=== PATIENT | female | born 1965 | race Hispanic/Latino ===

== ENCOUNTER 2017-06-02 15:12 | Observation (INO) | payer MEDICAID ==
--- NOTE | 2017-06-02 15:35 | ED PDOC ---
Arrival/HPI - General Chief Complaint: Medical Clearance Time Seen by Provider: 06/02/17 15:20 Historian: Patient - History of Present Illness Narrative History of Present Illness (Text): 06/02/17 15:31 A 52 year old female whose past medical history includes hypertension, presents to the emergency department with 1 week duration chest and neck pain. The patient describes the chest pain as heaviness and the neck pain as a pulling sensation. She states that the pain has been intermittent and has become worse today. The patient denies denies fevers, chills, headache, dizziness, sore throat, cough, shortness of breath, dyspnea on exertion, abdominal pain, nausea , vomiting, diarrhea, back pain, urinary/bowel changes, or any other complaints. 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 absent: HUFFMAN Gastrointestinal: absent: Abdominal Pain, Stool Changes, Diarrhea, Nausea, Vomiting Genitourinary Female: absent: Urine Output Changes Musculoskeletal: Neck Pain (Pulling sensation). absent: Back Pain Neurological: absent: Headache, Dizziness Physical Exam Vital Signs Reviewed: Yes Vital Signs Temp Pulse Resp BP Pulse Ox 06/02/17 18:12 61 18 130/69 95 06/02/17 17:03 60 18 140/73 99 06/02/17 16:24 59 L 14 142/77 06/02/17 15:20 97.1 F L 88 16 133/92 H 98 Temperature: Hypothermic Blood Pressure: Normal Pulse: Regular Respiratory Rate: Normal Appearance: Positive for: Well-Appearing, Non-Toxic, Comfortable Pain Distress: None Mental Status: Positive for: Alert and Oriented X 3 - Systems Exam Head: Present: Atraumatic, Normocephalic Pupils: Present: PERRL Extroacular Muscles: Present: EOMI Conjunctiva: Present: Normal Mouth: Present: Moist Mucous Membranes Neck: Present: Normal Range of Motion Respiratory/Chest: Present: Clear to Auscultation, Good Air Exchange. No: Respiratory Distress, Accessory Muscle Use Cardiovascular: Present: Regular Rate and Rhythm, Normal S1, S2. No: Murmurs Abdomen: Present: Normal Bowel Sounds. No: Tenderness, Distention, Peritoneal Signs Back: Present: Normal Inspection Upper Extremity: Present: Normal Inspection. No: Cyanosis, Edema Lower Extremity: Present: Normal Inspection. No: Edema Neurological: Present: GCS=15, CN II-XII Intact, Speech Normal Skin: Present: Warm, Dry, Normal Color. No: Rashes Psychiatric: Present: Alert, Oriented x 3, Normal Insight, Normal Concentration Medical Decision Making ED Course and Treatment: 06/02/17 15:36 Impression: A 52 year old female presents to the emergency department with 1 week duration, intermittent neck and chest pain. Plan: -- EKG -- Chest X-ray -- Labs -- Urinalysis -- Reassess and disposition Progress Notes: 06/02/17 15:41 EKG: Ordered, reviewed, and independently interpreted the EKG. Rate : 66 BPM Rhythm : NSR Interpretation : No ST/T-wave changes. - Lab Interpretations Lab Results: 06/02/17 16:06 06/02/17 16:06 Lab Results 06/02/17 16:06: Sodium 139, Potassium 4.3, Chloride 99, Carbon Dioxide 30, Anion Gap 14, BUN 13, Creatinine 0.9, Est GFR ( Amer) > 60, Est GFR (Non- Af Amer) > 60, Random Glucose 90, Calcium 9.9, Magnesium 1.8, Total Bilirubin 0.4, AST 33, ALT 41, Alkaline Phosphatase 87, Lactate Dehydrogenase 601, Total Creatine Kinase 111, Troponin I < 0.01, Total Protein 7.6, Albumin 4.5, Globulin 3.1, Albumin/Globulin Ratio 1.5 06/02/17 16:06: PT 11.1, INR 1.03, APTT 26.1 06/02/17 16:06: WBC 6.1, RBC 4.42, Hgb 13.7, Hct 40.2, MCV 91.0, MCH 31.0, MCHC 34.1, RDW 11.7, Plt Count 185, MPV 10.0, Gran % 61.1, Lymph % (Auto) 29.9, [place] % (Auto) 7.4 H, Eos % (Auto) 1.3 L, Baso % (Auto) 0.3, Gran # 3.70, Lymph # 1.8 , [place] # 0.5, Eos # 0.1, Baso # 0.02 06/02/17 15:47: Urine Color Yellow, Urine Appearance Clear, Urine pH 7.0, Ur Specific [place] 1.010, Urine Protein Negative, Urine Glucose (UA) Negative, Urine Ketones Negative, Urine Blood Negative, Urine Nitrate Negative, Urine Bilirubin Negative, Urine Urobilinogen 0.2, Ur Leukocyte Esterase Negative, Urine HCG, Qual Negative I have reviewed the lab results: Yes - RAD Interpretation Radiology Orders: 06/02/17 15:31 CHEST PORTABLE [RAD] Stat - EKG Interpretation Interpreted by ED Physician: Yes Type: 12 lead EKG - Medication Orders Current Medication Orders: Aspirin (Ecotrin) 81 mg PO DAILY OSL Methadone HCl (Methadone) 140 mg PO DAILY SOL Metoprolol Tartrate (Lopressor) 25 mg PO BRKDIN SOL Pantoprazole Sodium (Protonix Ec Tab) 40 mg PO 0600 [facility] Discontinued Medications Aspirin (Aspirin) 325 mg PO STAT STA Stop: 06/02/17 16:50 Last Admin: 06/02/17 16:58 Dose: 325 mg - Scribe Statement The provider has reviewed the documentation as recorded by the Olivia Escamilla Provider Liuibe Attestation: All medical record entries made by the Liuibiván were at my direction and personally dictated by me. I have reviewed the chart and agree that the record accurately reflects my personal performance of the history, physical exam, medical decision making, and the department course for this patient. I have also personally directed, reviewed, and agree with the discharge instructions and disposition. Disposition/Present on Arrival - Present on Arrival Any Indicators Present on Arrival: No History of DVT/PE: No History of Uncontrolled Diabetes: No Urinary Catheter: No History of Decub. Ulcer: No History Surgical Site Infection Following: None - Disposition Have Diagnosis and Disposition been Completed?: Yes Diagnosis: Chest pain Disposition: HOSPITALIZED Disposition Time: 21:40 Condition: UNKNOWN
[2017-06-02 15:36] VITALS: TEMP 97.1
[2017-06-02 16:12] LABS: BASO # 0.02 K/mm3 (0.0-2.0); BASO % 0.3 % (0.0-3.0); EOS # 0.1 (0.0-0.7); EOS % 1.3 % (1.5-5.0); GRAN # 3.7 (1.4-6.5); GRAN % 61.1 % (50.0-68.0); HEMATOCRIT 40.2 % (36.0-48.0); LYMPH # 1.8 (1.2-3.4); LYMPH % 29.9 % (22.0-35.0); MEAN CORPUSCULAR HGB CONC 34.1 g/dl (31.0-37.0); MONO # 0.5 (0.1-0.6); MONO % 7.4 % (1.0-6.0); RED CELL DISTRIBUTION WIDTH 11.7 % (11.5-14.5); WHITE BLOOD COUNT 6.1 10^3/ul (4.5-11.0)
[2017-06-02 16:21] LABS: ALB/GLOB RATIO 1.5 (1.1-1.8); ALKALINE PHOSPHATASE 87 U/L (38-126); ALT/SGPT 41 U/L (7-56); AST/SGOT 33 U/L (14-36); BILIRUBIN,TOTAL 0.4 mg/dL (0.2-1.3); BLOOD UREA NITROGEN 13 mg/dL (7-21); CALCIUM 9.9 mg/dL (8.4-10.5); CARBON DIOXIDE 30 mmol/L (21-33); CHLORIDE 99 mmol/L (98-107); GFR AFRICAN-AMERICAN > 60; GLUCOSE,RANDOM 90 mg/dL (70-110); INR 1.03 (0.93-1.08); MAGNESIUM 1.8 mg/dL (1.7-2.2); PARTIAL THROMBOPLASTIN TIME 26.1 Seconds (23.7-30.8); POTASSIUM 4.3 mmol/L (3.6-5.0); SODIUM 139 mmol/L (132-148); TOTAL PROTEIN 7.6 g/dL (5.8-8.3)
[2017-06-02 16:24] LABS: URINE BILIRUBIN NEGATIVE (NEGATIVE); URINE BLOOD NEGATIVE (NEGATIVE); URINE GLUCOSE (UA) NEGATIVE (NEGATIVE); URINE KETONE NEGATIVE (NEGATIVE); URINE LEUKOCYTE ESTERASE NEGATIVE Leu/uL (NEGATIVE); URINE PROTEIN NEGATIVE mg/dL (<30 mg/dL); URINE UROBILINOGEN 0.2 E.U./dL (<1 E.U./dL)
[2017-06-02 16:32] LABS: URINE APPEARANCE CLEAR (CLEAR); URINE COLOR YELLOW (YELLOW)
[2017-06-02 16:32] LABS: TROPONIN I < 0.01 ng/mL
--- NOTE | 2017-06-02 18:17 | CP.PCM.HP ---
<OLINDA BRAGA - Last Filed: 06/02/17 18:20> History of Present Illness - History of Present Illness History of Present Illness: CC: Chest Pain HPI: Pt is a 52 yo F with PMHx of HTN, MARIN, and heroin abuse presents to [facility] with complaints of intermittent and sharp chest pain for the past week. Today, pt states chest pain began around noon and was localized to the left of the sternum with concurrent left sided neck pain and diaphoresis. Pt denies any radiation. Pt denies any alleviating or aggravating factors. At the time of examination, pt was asymptomatic. Pt states that she had a similar occurrence a few years ago while she was in [place]. Cardiac workup was unremarkable at the time. Pt denies SOB, n/v/d, abdominal pain, chills, fever, dysuria, MARIN, dizziness, and fatigue. PMH: HTN, MARIN, H/O heroin abuse, H/O hepatitis C (treated) Surg: FHx: DM2, cervical CA (mother) All: NKDA SH: Denied EtOH, tobacco, and current illicit drug use (Last heroin use 16 yrs ago, currently treated with Methadone) Medications: Methadone 140 mg daily, ASA 81 mg daily, Bystolic 5 mg daily Present on Admission - Present on Admission Any Indicators Present on Admission: No Review of Systems - Review of Systems All systems: reviewed and no additional remarkable complaints except (what is stated in HPI.) Past Patient History - Infectious Disease Hx of Infectious Diseases: None - Past Social History Smoking Status: Never Smoked - CARDIAC Hx Hypertension: Yes - PSYCHIATRIC Hx 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 absent: Chest Wall Tenderness, Rales, Rhonchi, Wheezes - Cardiovascular Exam Cardiovascular Exam: RRR, +S1, +S2. absent: Diastolic murmur, Gallop, Rubs, Systolic Murmur Additional comments: chest wall not TTP - GI/Abdominal Exam GI & Abdominal Exam: Soft. absent: Distended, Firm, Guarding, Rebound, Tenderness - Extremities Exam Extremities exam: Positive for: normal inspection - Neurological Exam Neurological exam: Alert, CN II-XII Intact, Oriented x3 - Psychiatric Exam Psychiatric exam: Normal Affect, Normal Mood - Skin Skin Exam: Dry, Intact, Normal Color, Warm Results - Vital Signs Recent Vital Signs: Last Vital Signs Temp 97.1 F L 06/02/17 15:20 Pulse 61 06/02/17 18:12 Resp 18 06/02/17 18:12 BP 130/69 06/02/17 18:12 Pulse Ox 95 06/02/17 18:12 - Labs Result Diagrams: 06/02/17 16:06 06/02/17 16:06 Assessment & Plan - Assessment and Plan (Free Text) Assessment: 52 yo female with PMH of HTN, MARIN, and H/O heroin abuse admitted for evaluation and treatment for chest pain r/o ACS. Plan: 1. Chest Pain r/o ACS - Admitted to telemetry for observation - EKG showed NSR, no ST/T-wave changes - Troponin negative x1, f/u trend x2 - Cardiology consulted - F/u echo, EKG in AM, lipid panel, TSH, HA1c - ASA 81 mg daily 2. HTN - Metoprolol 25 mg BID 3. H/O Heroin Abuse - Cont Methadone 140 mg daily GI PPx - Protonix Pt seen and discussed in detail with Dr. John. Troy Braga, PGY1 <Sarah John - Last Filed: 06/03/17 10:10> Results - Vital Signs Recent Vital Signs: Last Vital Signs Temp 97.1 F L 06/02/17 19:54 Pulse 65 06/02/17 21:40 Resp 20 06/02/17 19:54 BP 132/75 06/02/17 19:54 Pulse Ox 97 06/02/17 19:54 - Labs Result Diagrams: 06/02/17 16:06 06/02/17 16:06 Labs: Laboratory Results - last 24 hr 06/02/17 20:40 Lactate Dehydrogenase 545 Total Creatine Kinase 96 Troponin I < 0.01 Attending/Attestation - Attestation I have personally seen and examined this patient.: Yes I have fully participated in the care of the patient.: Yes I have reviewed all pertinent clinical information: Yes Notes (Text): 06/03/17 10:07 attending note; Patient seen and examined with resident in ER. Patient is a 52-year-old female with PMHx of HTN, MARIN, h/o heroin abuse on methadone program and history of hepatitis C treated a year ago presents to [facility] with complaints of intermittent and sharp chest pain for the past week. EKG normal sinus rhythm. Cardiac enzymes negative. Most likely musculoskeletal pain. Admit to telemetry. Cardiac enzymes 3 ordered. Continue methadone/home medication from [facility]. Echocardiogram/cardiology evaluation requested. Upon discharge the patient will follow-up with PMD Dr. Booker. 06/03/17 10:08
[2017-06-02 19:55] VITALS: BP 132/75; RESP 20; O2SAT 97
--- NOTE | 2017-06-02 20:02 | RAD ---
HISTORY: Chest pain. Technique: Single view portable semi erect @ 17:05. COMPARISON: No prior. FINDINGS: LUNGS: No active pulmonary disease. PLEURA: No significant pleural effusion identified, no pneumothorax apparent. CARDIOVASCULAR: No radiographic findings to suggest acute or significant cardiovascular disease. OSSEOUS STRUCTURES: No significant abnormalities. VISUALIZED UPPER ABDOMEN: Normal. OTHER FINDINGS: None. IMPRESSION: No active disease.
[2017-06-02 21:14] LABS: TROPONIN I < 0.01 ng/mL
[2017-06-02 21:41] VITALS: PULSE 65
--- NOTE | 2017-06-02 21:53 | CARD ---
APPROVED REPORT EKG Measurement Heart [id number] DE [id number] <Conclusion> Normal sinus rhythm Normal ECG
--- NOTE | 2017-06-03 04:02 | CP.PCM.PN ---
<VinayakFabián - Last Filed: 06/03/17 03:59> Subjective - Date & Time of Evaluation Date of Evaluation: 06/03/17 Time of Evaluation: 03:59 - Subjective Subjective: 52 F requested to be signed out AMA. I personally saw patient and advised her to stay so that we could better evaluate her CP. I explained to the patient that we wanted to check her enzymes and her EKG to eliminate the possibility of a negative outcome. Patient stated that she was aware of the risks of leaving, including a heart attack, permanent disability, and , but she stated that she needed to be other places. I advised patient that if any of her symptoms persist, recur, or worsen, then she should return to the ED immediately Objective - Vital Signs/Intake and Output Vital Signs (last 24 hours): Temp Pulse Resp BP Pulse Ox 97.1 F L 65 20 132/75 97 06/02/17 19:54 06/02/17 21:40 06/02/17 19:54 06/02/17 19:54 06/02/17 19:54 - Labs Labs: PT 11.1 Seconds (9.9-11.8) 06/02/17 16:06 INR 1.03 (0.93-1.08) 06/02/17 16:06 APTT 26.1 Seconds (23.7-30.8) 06/02/17 16:06 <Pino Maddox - Last Filed: 06/03/17 04:03> Objective - Vital Signs/Intake and Output Vital Signs (last 24 hours): Temp Pulse Resp BP Pulse Ox 97.1 F L 65 20 132/75 97 06/02/17 19:54 06/02/17 21:40 06/02/17 19:54 06/02/17 19:54 06/02/17 19:54 - Labs Labs: PT 11.1 Seconds (9.9-11.8) 06/02/17 16:06 INR 1.03 (0.93-1.08) 06/02/17 16:06 APTT 26.1 Seconds (23.7-30.8) 06/02/17 16:06 Attending/Attestation - Attestation I have personally seen and examined this patient.: No I have fully participated in the care of the patient.: Yes I have reviewed all pertinent clinical information, including history, physical exam and plan: Yes
[2017-06-03] MEDS ORDERED: Pantoprazole 40 mg EC Tab PO SCH (06:00)
== END 2017-06-02 21:43 | disposition left against medical advice (07) ==
LOC: ED 15:12 → ERH 17:24 → 2RSO 20:11
PROVIDERS: ADMIT Internal Medicine; ATTEND Internal Medicine
DX: R07.89 Other chest pain (principal); I10 Essential (primary) hypertension; F11.10 Opioid abuse, uncomplicated; R61 Generalized hyperhidrosis; M54.2 Cervicalgia; Z86.19 Personal history of other infectious and parasitic diseases
CPT/HCPCS: 71010; 80053; 81003; 82550; 83036; 83615; 83735; 84484; 84703; 85025; 85610; 85730; 93005; 99285; G0378

== ENCOUNTER 2017-09-22 06:23 | Day surgery (SDC) | payer MEDICAID ==
[2017-09-14 13:28] VITALS: BMI 32.0
[2017-09-22 07:04] VITALS: RESP 18
[2017-09-22] MEDS ORDERED: Lidocaine 1% Inj (20ml) ONE (09:21)
[2017-09-22] MEDS ORDERED: Propofol 10 mg/ml Inj (20 ML) ONE ×2 (09:21→09:54)
[2017-09-22] MEDS ORDERED: Sodium Chloride 0.9% 1,000 ML IV SCH (10:15)
[2017-09-22 11:10] VITALS: BP 118/68; PULSE 63; TEMP 97.6; O2SAT 96
== END 2017-09-22 11:32 | disposition home or self-care (01) ==
LOC: ENDO 06:23
PROVIDERS: ATTEND Internal Medicine Gastroenterology
DX: Z12.11 Encounter for screening for malignant neoplasm of colon (principal); K63.5 Polyp of colon; K64.0 First degree hemorrhoids
CPT/HCPCS: 45380; 84703; 88305; J2704; J7040 ×2

== ENCOUNTER 2018-09-10 20:42 | Emergency (ER) | payer MEDICAID ==
[2018-09-10 21:30] VITALS: BMI 29.7
[2018-09-10 21:33] VITALS: RESP 18; O2SAT 96
[2018-09-10] MEDS ORDERED: Sodium Chloride 0.9% 500 ML IV STA (22:06)
[2018-09-10 23:29] LABS: URINE BILIRUBIN NEGATIVE (NEGATIVE); URINE BLOOD NEGATIVE (NEGATIVE); URINE GLUCOSE (UA) NEGATIVE (NEGATIVE); URINE LEUKOCYTE ESTERASE NEGATIVE Leu/uL (NEGATIVE); URINE PROTEIN NEGATIVE mg/dL (<30 mg/dL)
[2018-09-10 23:34] LABS: URINE APPEARANCE CLEAR (CLEAR); URINE COLOR YELLOW (YELLOW)
[2018-09-10 23:40] LABS: BASO # 0.01 K/mm3 (0.0-2.0); BASO % 0.1 % (0.0-3.0); EOS # 0.1 (0.0-0.7); EOS % 1.1 % (1.5-5.0); GRAN # 4.71 (1.4-6.5); HEMOGLOBIN 13.7 g/dL (12.0-16.0); LYMPH # 1.7 (1.2-3.4); LYMPH % 24.1 % (22.0-35.0); MEAN CELL VOLUME 92.1 fl (80.0-105.0); MEAN CORPUSCULAR HEMOGLOBIN 30.9 pg (25.0-35.0); MEAN CORPUSCULAR HGB CONC 33.6 g/dl (31.0-37.0); MEAN PLATELET VOLUME 9.9 fl (7.0-11.0); MONO # 0.6 (0.1-0.6); MONO % 8.7 % (1.0-6.0); RBC 4.43 10^6/uL (3.5-6.1); RED CELL DISTRIBUTION WIDTH 11.8 % (11.5-14.5); WHITE BLOOD COUNT 7.1 10^3/uL (4.5-11.0)
[2018-09-10 23:58] LABS: ALB/GLOB RATIO 1.4 (1.1-1.8); ALBUMIN 4.4 g/dL (3.0-4.8); ALT/SGPT 37 U/L (7-56); AST/SGOT 37 U/L (14-36); BLOOD UREA NITROGEN 12 mg/dL (7-21); CALCIUM 9.7 mg/dL (8.4-10.5); GFR NON-AFRICAN AMERICAN > 60; LIPASE 99 U/L (23-300)
[2018-09-11] MEDS ORDERED: Iohexol 350 MG/100 ML VIAL ONE (01:19)
--- NOTE | 2018-09-11 03:18 | ED PDOC ---
Arrival/HPI - General Historian: Patient - History of Present Illness Narrative History of Present Illness (Text): 09/11/18 03:47 53-year-old female presents today with a 3-day history of right upper quadrant abdominal pain. Patient denies nausea vomiting diarrhea constipation. She denies chest pain or shortness of breath. She denies urinary symptoms. No fevers or chills. Patient states she has been having some intermittent constipation but states she had a bowel movement yesterday. No dizziness or weakness. No other complaints <Dana Hawkins - Last Filed: 09/11/18 03:13> <Anup Castillo - Last Filed: 09/11/18 03:58> - General Chief Complaint: Abdominal Pain Time Seen by Provider: 09/10/18 20:51 Past Medical History - Provider Review Nursing Documentation Reviewed: Yes - Travel History Have you recently traveled outside [place] w/in the past 3 mons?: No - Infectious Disease Hx of Infectious Diseases: None - Reproductive Menopause: Yes - Cardiac Hx Pacemaker: No - Neurological Hx Paralysis: No - Hematological/Oncological Hx Blood Transfusions: No - Musculoskeletal/Rheumatological Hx Musculoskeletal Disorders: No - Psychiatric Hx Emotional Abuse: No Hx Physical Abuse: No Hx Substance Use: Yes (HX OF OPIOID ADDICTION, NOW ON METHADONE) - Anesthesia Hx Anesthesia Reactions: No Hx Malignant Hyperthermia: No - Suicidal Assessment Feels Threatened In Home Enviroment: No <Dana Hawkins - Last Filed: 09/11/18 03:13> Family/Social History - Physician Review Nursing Documentation Reviewed: Yes Family/Social History: Unknown Family HX Smoking Status: Never Smoked Hx Alcohol Use: Yes (QUIT 16YRS AGO) Hx Substance Use: Yes (HX OF OPIOID ADDICTION, NOW ON METHADONE) <Dana Hawkins - Last Filed: 09/11/18 03:13> Allergies/Home Meds <Dana Hawkins - Last Filed: 09/11/18 03:13> <Anup Castillo - Last Filed: 09/11/18 03:58> Allergies/Adverse Reactions: Allergies No Known Allergies Allergy (Verified 09/10/18 21:28) Home Medications: Home Meds Medication Instructions Recorded Confirmed Methadone 140 mg PO DAILY 06/02/17 09/22/17 Clonazepam [Klonopin] 1 mg PO HS 09/10/18 09/10/18 Review of Systems - Review of Systems Constitutional: absent: Fevers Respiratory: absent: SOB, Cough Cardiovascular: absent: Chest Pain, Palpitations Gastrointestinal: Abdominal Pain. absent: Constipation, Diarrhea, Nausea Genitourinary Female: absent: Hematuria Musculoskeletal: absent: Arthralgias, Back Pain, Neck Pain Skin: absent: Rash, Pruritis Neurological: absent: Headache, Dizziness Psychiatric: absent: Anxiety, Depression <Dana Hawkins - Last Filed: 09/11/18 03:13> Physical Exam Vital Signs Reviewed: Yes Vital Signs Temp Pulse Resp BP Pulse Ox 09/11/18 02:40 97.7 F 71 18 136/81 96 09/10/18 21:29 98.4 F 96 H 18 123/70 96 Temperature: Afebrile Blood Pressure: Normal Pulse: Regular Respiratory Rate: Normal Appearance: Positive for: Well-Appearing, Non-Toxic, Comfortable Pain Distress: None Mental Status: Positive for: Alert and Oriented X 3 - Systems Exam Head: Present: Atraumatic Mouth: Present: Moist Mucous Membranes Neck: Present: Normal Range of Motion Respiratory/Chest: Present: Clear to Auscultation, Good Air Exchange. No: Respiratory Distress, Accessory Muscle Use Cardiovascular: Present: Regular Rate and Rhythm, Normal S1, S2. No: Murmurs Abdomen: Present: Tenderness (ruq tenderness). No: Distention, Normal Bowel Sounds, Peritoneal Signs, Rebound, Guarding Back: Present: Normal Inspection. No: CVA Tenderness, Midline Tenderness, Paraspinal Tenderness Upper Extremity: Present: Normal ROM Lower Extremity: Present: Normal ROM Neurological: Present: GCS=15 Skin: Present: Warm, Dry, Normal Color. No: Rashes Psychiatric: Present: Alert, Oriented x 3 <Dana Hawkins - Last Filed: 09/11/18 03:13> Vital Signs Temp Pulse Resp BP Pulse Ox 09/11/18 02:40 97.7 F 71 18 136/81 96 09/10/18 21:29 98.4 F 96 H 18 123/70 96 <Anup Castillo - Last Filed: 09/11/18 03:58> Medical Decision Making ED Course and Treatment: 09/11/18 03:13 Patient is nontoxic well appearing with stable vital signs presenting with right upper abdominal pain CBC wnl CMP wnl Lipase wnl Urinalysis: wnl Ultrasound: Findings: Liver is normal in size measuring 16.1 cm. Increased hepatic echogenicity. An irregular hepatic contour. Contracted gallbladder. Cholelithiasis without acute cholecystitis. Normal gallbladder wall thickness measuring 3 mm. Nondilated common bile duct measuring 3.9 mm. Limited visualization of the pancreas. Unremarkable spleen measuring 11.6x4.2x3.8 cm. Nonvisualization of the IVC. Nonvisualization of the aorta. Unremarkable kidneys. Impression: Coarse hepatic echotexture. Possibly chronic parenchymal liver disease. Cholelithiasis without acute cholecystitis. CAT scan: COMMENTS: Uncomplicated colonic diverticulosis. Mild amount of fecal residue in the large bowel. The liver is of uniform attenuation without mass or defect. There is no intra or extrahepatic biliary ductal dilatation. The spleen is normal. The gallbladder is within normal limits. The pancreas is of normal contour and attenuation characteristics. There is no evidence of adrenal mass. Both kidneys demonstrate prompt and equal nephrograms. The kidneys are normal in size, shape and configuration. There is no evidence of renal or ureteral mass. No renal or ureteral calculi are identified. There is no hydroureter or hydronephrosis. No evidence for appendicitis. There is no bowel wall thickening. No evidence for small or large bowel obstruction. There is no evidence of abdominal ascites or lymphadenopathy. There is no evidence of intrinsic or extrinsic bladder mass. There is no pelvic ascites or lymphadenopathy. Images of the lung bases show no evidence of pleural or parenchymal mass. There are no pleural effusions. The bony structures are free of lytic or blastic lesions. IMPRESSION: No evidence of acute abdominal or pelvic pathology. Thank you for your kind referral of this patient. Electronically signed on Sep 11, 2018 2:47:36 AM EST by: Judy Valadez M.D., Certified by ABR, MSK, Neuroradiology Patient reassessment: Patient feeling better after medications. Patient denies any pain at present time. Resting comfortably in no distress Discussed all results with patient in depth. I advised patient of ultrasound findings of gallstone. Advised follow-up with a primary care physician and surgeon within the next 2 days. Advised to me to return if symptoms worsen persist or if new concerning symptoms develop. Patient verbalizes understanding of discharge instructions and need for immediate followup. All aspects of this case were discussed the attending of record. Impression: biliary colic, gallstones motrin every 6 hours as needed for pain Increase fluids Follow-up with primary care physician within the next 2 days Follow-up with the surgeon within the next 2 days Return immediately if symptoms worsen persist or if new symptoms develop: High fevers, increasing pain, vomiting, chest pain or shortness of breath or if any other concerning symptoms develop Reassessment Condition: Re-examined, Improved (pain completely resolved. abdomen is soft non tender. non distended.) - Lab Interpretations Lab Results: Total Bilirubin 0.4 mg/dL (0.2-1.3) 09/10/18 23:20 AST 37 U/L (14-36) H 09/10/18 23:20 ALT 37 U/L (7-56) 09/10/18 23:20 Alkaline Phosphatase 90 U/L (38-126) 09/10/18 23:20 Total Protein 7.5 g/dL (5.8-8.3) 09/10/18 23:20 Albumin 4.4 g/dL (3.0-4.8) 09/10/18 23:20 Globulin 3.1 gm/dL 09/10/18 23:20 Albumin/Globulin Ratio 1.4 (1.1-1.8) 09/10/18 23:20 Lipase 99 U/L (23-300) 09/10/18 23:20 Urine Color Yellow (YELLOW) 09/10/18 23:25 Urine Appearance Clear (CLEAR) 09/10/18 23:25 Urine pH 7.0 (4.7-8.0) 09/10/18 23:25 Ur Specific [place] 1.020 (1.005-1.035) 09/10/18 23:25 Urine Protein Negative mg/dL (<30 mg/dL) 09/10/18 23:25 Urine Glucose (UA) Negative mg/dL (NEGATIVE) 09/10/18 23:25 Urine Ketones Negative mg/dL (NEGATIVE) 09/10/18 23:25 Urine Blood Negative (NEGATIVE) 09/10/18 23:25 Urine Nitrate Negative (NEGATIVE) 09/10/18 23:25 Urine Bilirubin Negative (NEGATIVE) 09/10/18 23:25 Urine Urobilinogen 1.0 E.U./dL (<1 E.U./dL) H 09/10/18 23:25 Ur Leukocyte Esterase Negative Hola/uL (NEGATIVE) 09/10/18 23:25 - RAD Interpretation Radiology Orders: 09/10/18 22:06 CHEST PORTABLE [RAD] Stat 09/10/18 22:53 ABDOMEN COMPLETE [US] Stat 09/11/18 00:34 ABD & PELVIS IV CONTRAST ONLY [CT] Stat - Medication Orders Current Medication Orders: Discontinued Medications Sodium Chloride (Sodium Chloride 0.9%) 500 mls @ 999 mls/hr IV .Q31M STA Stop: 09/10/18 22:36 Last Admin: 09/10/18 23:50 Dose: 999 mls/hr eMAR Start Stop Document 09/10/18 23:50 OCS (Rec: 09/10/18 23:51 OCS [facility] [id number]) Intravenous Solution Start Date 09/10/18 Start Time 23:50 End Date 09/11/18 End time 00:20 Total Infusion Time 30 Ketorolac Tromethamine (Toradol) 30 mg IVP STAT STA Stop: 09/10/18 22:55 Last Admin: 09/10/18 23:49 Dose: 30 mg MAR Pain Assessment Document 09/10/18 23:49 OCS (Rec: 09/10/18 23:50 OCS [facility] [id number]) Pain Reassessment Is this a pain reassessment? No Sleep Is patient sleeping during reassessment? No Presence of Pain Presence of Pain Yes Pain Scale Used Protocol: PSCALES Pain Scale Used Numeric Location Left, Right or Bilateral Right Upper or Lower Upper Pain Location Body Site Abdomen Description Description Constant Intensity of Pain at present 7 Aggravating Factors ADL's IVP Administration Document 09/10/18 23:49 OCS (Rec: 09/10/18 23:50 OCS [facility] [id number]) Charges for Administration # of IVP Administrations 1 <Dana Hawkins T - Last Filed: 09/11/18 03:13> - Lab Interpretations Lab Results: Total Bilirubin 0.4 mg/dL (0.2-1.3) 09/10/18 23:20 AST 37 U/L (14-36) H 09/10/18 23:20 ALT 37 U/L (7-56) 09/10/18 23:20 Alkaline Phosphatase 90 U/L (38-126) 09/10/18 23:20 Total Protein 7.5 g/dL (5.8-8.3) 09/10/18 23:20 Albumin 4.4 g/dL (3.0-4.8) 09/10/18 23:20 Globulin 3.1 gm/dL 09/10/18 23:20 Albumin/Globulin Ratio 1.4 (1.1-1.8) 09/10/18 23:20 Lipase 99 U/L (23-300) 09/10/18 23:20 Urine Color Yellow (YELLOW) 09/10/18 23:25 Urine Appearance Clear (CLEAR) 09/10/18 23:25 Urine pH 7.0 (4.7-8.0) 09/10/18 23:25 Ur Specific [place] 1.020 (1.005-1.035) 09/10/18 23:25 Urine Protein Negative mg/dL (<30 mg/dL) 09/10/18 23:25 Urine Glucose (UA) Negative mg/dL (NEGATIVE) 09/10/18 23:25 Urine Ketones Negative mg/dL (NEGATIVE) 09/10/18 23:25 Urine Blood Negative (NEGATIVE) 09/10/18 23:25 Urine Nitrate Negative (NEGATIVE) 09/10/18 23:25 Urine Bilirubin Negative (NEGATIVE) 09/10/18 23:25 Urine Urobilinogen 1.0 E.U./dL (<1 E.U./dL) H 09/10/18 23:25 Ur Leukocyte Esterase Negative Hola/uL (NEGATIVE) 09/10/18 23:25 - RAD Interpretation Radiology Orders: 09/10/18 22:06 CHEST PORTABLE [RAD] Stat 09/10/18 22:53 ABDOMEN COMPLETE [US] Stat 09/11/18 00:34 ABD & PELVIS IV CONTRAST ONLY [CT] Stat - Medication Orders Current Medication Orders: Discontinued Medications Sodium Chloride (Sodium Chloride 0.9%) 500 mls @ 999 mls/hr IV .Q31M STA Stop: 09/10/18 22:36 Last Admin: 09/10/18 23:50 Dose: 999 mls/hr eMAR Start Stop Document 09/10/18 23:50 OCS (Rec: 09/10/18 23:51 OCS [id number]) Intravenous Solution Start Date 09/10/18 Start Time 23:50 End Date 09/11/18 End time 00:20 Total Infusion Time 30 Ketorolac Tromethamine (Toradol) 30 mg IVP STAT STA Stop: 09/10/18 22:55 Last Admin: 09/10/18 23:49 Dose: 30 mg MAR Pain Assessment Document 09/10/18 23:49 OCS (Rec: 09/10/18 23:50 [facility] [place] [place] Pain Reassessment Is this a pain reassessment? No Sleep Is patient sleeping during reassessment? No Presence of Pain Presence of Pain Yes Pain Scale Used Protocol: PSCALES Pain Scale Used Numeric Location Left, Right or Bilateral Right Upper or Lower Upper Pain Location Body Site Abdomen Description Description Constant Intensity of Pain at present 7 Aggravating Factors ADL's IVP Administration Document 09/10/18 23:49 OCS (Rec: 09/10/18 23:50 [facility] Charges for Administration # of IVP Administrations 1 <Anup Castillo - Last Filed: 09/11/18 03:58> - PA / [employer] CURER / Resident Statement MD/DO has reviewed & agrees with the documentation as recorded. <Anup Castillo - Last Filed: 09/11/18 03:58> Disposition/Present on Arrival - Present on Arrival Any Indicators Present on Arrival: No History of DVT/PE: No History of Uncontrolled Diabetes: No Urinary Catheter: No History of Decub. Ulcer: No History Surgical Site Infection Following: None - Disposition Have Diagnosis and Disposition been Completed?: Yes Disposition Time: 02:47 Patient Plan: Discharge <Dana Hawkins - Last Filed: 09/11/18 03:13> <Anup Castillo - Last Filed: 09/11/18 03:58> - Disposition Diagnosis: Biliary colic, Gallstones Disposition: HOME/ ROUTINE Patient Problems: Current Active Problems Problem Status Onset Biliary colic Acute Gallstones Acute Condition: GOOD Discharge Instructions (ExitCare): Gallstones (DC) Additional Instructions: motrin every 6 hours as needed for pain Increase fluids Follow-up with primary care physician within the next 2 days Follow-up with the surgeon within the next 2 days Return immediately if symptoms worsen persist or if new symptoms develop: High fevers, increasing pain, vomiting, chest pain or shortness of breath or if any other concerning symptoms develop Prescriptions: Ibuprofen [Motrin] 600 mg PO Q6H PRN #20 tab PRN Reason: pain/fever reduction Referrals: Shaquille Muse DO [Medical Doctor] - Follow up with primary Myke Javed MD [Medical Doctor] - Follow up with primary Gonzalo Mercado MD [Staff Provider] - Follow up with primary Ernesto Doshi MD [Staff Provider] - Follow up with primary Forms: [employer] (Faroese), WORK NOTE
[2018-09-11 05:28] VITALS: BP 103/85; PULSE 80; TEMP 97.8
--- NOTE | 2018-09-11 08:35 | CT ---
Date of service: 09/11/2018 PROCEDURE: CT Abdomen and Pelvis with contrast HISTORY: abd pain right sided, greated in right upper COMPARISON: None. TECHNIQUE: Contrast dose: 100 cc of Omni 350 Radiation dose: Total exam DLP = 528.14 mGy-cm. This CT exam was performed using one or more of the following dose reduction techniques: Automated exposure control, adjustment of the mA and/or kV according to patient size, and/or use of iterative reconstruction technique. FINDINGS: LOWER THORAX: Unremarkable. LIVER: Unremarkable. No gross lesion or ductal dilatation. GALLBLADDER AND BILE DUCTS: Unremarkable. PANCREAS: Unremarkable. No gross lesion or ductal dilatation. SPLEEN: Unremarkable. ADRENALS: Unremarkable. No mass. KIDNEYS AND URETERS: Unremarkable. No hydronephrosis. No solid mass. VASCULATURE: Unremarkable. No aortic aneurysm. No aortic atherosclerotic calcification or mural plaque present. BOWEL: Unremarkable. No obstruction. No gross mural thickening. APPENDIX: Normal appendix. PERITONEUM: Unremarkable. No free fluid. No free air. LYMPH NODES: Unremarkable. No enlarged lymph nodes. BLADDER: Unremarkable. REPRODUCTIVE: Unremarkable. BONES: No acute fracture. OTHER FINDINGS: The report concurs with the preliminary [facility] report IMPRESSION: Unremarkable contrast enhanced CT of the abdomen and pelvis.
--- NOTE | 2018-09-11 09:09 | RAD ---
Date of service: 09/10/2018 HISTORY: Abdominal pain COMPARISON: 06/02/2017. FINDINGS: LUNGS: The lungs are well inflated and clear. PLEURA: No pleural effusions or pneumothorax. CARDIOVASCULAR: The heart is normal in size. No aortic atherosclerotic calcifications present. OSSEOUS STRUCTURES: Within normal limits for the patient's age. VISUALIZED UPPER ABDOMEN: Normal. OTHER FINDINGS: None. IMPRESSION: No active pulmonary disease.
--- NOTE | 2018-09-11 09:24 | US ---
Date of service: 09/11/2018 HISTORY: ruq pain COMPARISON: None. TECHNIQUE: Grayscale imaging was performed. FINDINGS: LIVER: Measures 16.1 cm. There is diffuse increased echogenicity of the liver parenchyma. No mass. No intrahepatic bile duct dilatation. GALLBLADDER: The gallbladder is contracted. There are multiple gallstones without wall thickening or pericholecystic fluid. The sonographic Phoenix's sign is positive. COMMON BILE DUCT: Measures 4.0 mm. No stones. No dilatation. PANCREAS: Obscured by bowel gas.. RIGHT KIDNEY: Measures 9.0cm. Normal echogenicity. No calculus, mass, or hydronephrosis. LEFT KIDNEY: Measures 8.6cm. Normal echogenicity. No calculus, mass, or hydronephrosis. SPLEEN: Normal in size and contour. No mass. AORTA: No aneurysmal dilatation. IVC: Unremarkable. OTHER FINDINGS: None. IMPRESSION: The gallbladder is contracted. Cholelithiasis and positive sonographic Phoenix's sign. Findings could represent acute calculus cholecystitis in the appropriate clinical setting. Clinical follow-up is advised. Fatty liver. A preliminary report was provided by [employer]..
== END 2018-09-11 03:49 | disposition home or self-care (01) ==
LOC: ED 20:42
DX: K80.70 Calculus of gallbladder and bile duct without cholecystitis without obstruction (principal)
CPT/HCPCS: 71045; 74177; 76700; 80053; 81003; 81025; 83690; 85025; 96374; 99284; J1885; J7040; Q9967

== ENCOUNTER 2018-11-30 13:08 | Outpatient (CLI) | payer MEDICAID | END 2018-11-30 13:09 | disposition home or self-care (01) | LOC: RAD 13:08 ==